=== PATIENT | male | born 1985 | race African-American/Black ===

== ENCOUNTER 2017-06-09 14:10 | Emergency (ER) | payer OTHER ==
[~2017-06-09] VITALS: Ht 188 cm; Wt 86.2 kg
[2017-06-09 14:38] VITALS: BP 126/83
[2017-06-09] MEDS ORDERED: KETOROLAC TROMETH 60MG/2ML VIAL IM ONE (16:15)
== END 2017-06-09 17:31 | disposition home or self-care (01) ==
LOC: ER 14:23
DX: R20.0 Anesthesia of skin (principal); M79.642 Pain in left hand
CPT/HCPCS: 70450; 96372; 99284; J1885

== ENCOUNTER 2018-02-14 16:59 | Emergency (ER) | payer MEDICAID ==
[~2018-02-14] VITALS: Ht 188 cm; Wt 86.2 kg
[2018-02-14 19:14] VITALS: BP 121/75
[2018-02-14] MEDS ORDERED: VANCOMYCIN 1GM/250ML 250 ML IV ONE (19:30)
[2018-02-14] MEDS ORDERED: cefTRIAXone 1GM/50ML D5W 50 ML IV ONE (19:30)
[2018-02-14 19:54] LABS: Basophils # (auto) 0.1 uL; Basophils % (auto) 0.5 % (0.0-2.0); Eosinophils # (auto) 0.1 uL; Eosinophils % (auto) 0.6 % (0.0-7.0); Hematocrit 35.7 % (41.0-53.0); Hemoglobin 12.2 g/dL (13.5-17.5); Lymphocytes # (auto) 2.3 uL; Lymphocytes % (auto) 19.7 % (10.0-50.0); Mean Corpuscular Hemoglobin 31.1 pg (28.0-32.0); Mean Corpuscular Hgb Conc. 34.2 g/dL (32.0-36.0); Mean Corpuscular Volume 90.8 fL (80.0-100.0); Monocytes % (auto) 8.8 % (0.0-12.0); Neutrophils # (auto) 8.1 uL; Neutrophils % (auto) 70.4 % (37.0-80.0); Platelet Count (auto) 304 10^3/uL (140-450); Red Blood Cells 3.93 10^6/uL (4.5-5.90); White Blood Cell 11.5 10^3/uL (4.4-10.8)
[2018-02-14 20:22] LABS: Albumin 3.7 g/dL (3.4-5.0); BUN/Creatinine Ratio 15.2; Calcium 8.7 mg/dL (8.5-10.1); Potassium 3.5 mmol/L (3.5-5.1)
[2018-02-14 20:25] LABS: Bilirubin, Total 0.3 mg/dL (0.2-1.0); Total Protein 7.5 g/dL (6.4-8.2)
[2018-02-14 21:25] LABS: Urine Bacteria NONE SEEN /hpf (None Seen); Urine Blood Negative /uL (Negative); Urine Mucus FEW (None Seen); Urine Specific Gravity 1.021 (1.001-1.035); Urine WBC 2 /hpf (0 - 3)
[2018-02-14 21:38] LABS: Alcohol, Urine < 3.0 mg/dL (0-5); Amphetamine Screen, Urine POSITIVE (NEGATIVE); Barbiturate Scree,Urine NEGATIVE (NEGATIVE); Benzodiazephine Screen, Urine NEGATIVE (NEGATIVE); Cannabinoid Screen, Urine NEGATIVE (NEGATIVE); Cocaine Screen, Urine NEGATIVE (NEGATIVE); Opiate Scree,Urine NEGATIVE (NEGATIVE); Phencyclidine Screen, Urine NEGATIVE (NEGATIVE)
== END 2018-02-14 21:59 | disposition home or self-care (01) ==
LOC: ER 16:59
DX: M65.842 Other synovitis and tenosynovitis, left hand (principal); F17.210 Nicotine dependence, cigarettes, uncomplicated; F12.10 Cannabis abuse, uncomplicated
CPT/HCPCS: 36415; 73200; 80053; 80307; 81001; 83605; 85025; 87040; 96365; 96368; 99284; J0696; J3370

== ENCOUNTER 2022-09-22 13:47 | Emergency (ER) | payer MEDICAID ==
[~2022-09-22] VITALS: Ht 182.9 cm; Wt 90.9 kg
[2022-09-22 15:56] VITALS: BP 126/74; PULSE 94; RESP 16; TEMP 99.4; O2SAT 100
[2022-09-22] MEDS ORDERED: METH-1182 PO (16:08)
[2022-09-22] MEDS ORDERED: IBUP-1456 PO (16:08)
== END 2022-09-22 16:14 | disposition home or self-care (01) ==
LOC: ER 13:47
DX: S46.911A Strain of unspecified muscle, fascia and tendon at shoulder and upper arm level, right arm, initial encounter (principal); F17.210 Nicotine dependence, cigarettes, uncomplicated; F15.90 Other stimulant use, unspecified, uncomplicated; Z79.1 Long term (current) use of non-steroidal anti-inflammatories (NSAID); Z79.899 Other long term (current) drug therapy; Y93.B2 Activity, push-ups, pull-ups, sit-ups; Y93.89 Activity, other specified; Y92.89 Other specified places as the place of occurrence of the external cause; Y99.8 Other external cause status
CPT/HCPCS: 73080; 73090

== ENCOUNTER 2022-09-30 11:45 | Emergency (ER) | payer MEDICAID ==
[~2022-09-30] VITALS: Ht 182.9 cm; Wt 92.0 kg
[~2022-09-30 11:45] MED LIST: IBUP-1456 PO; METH-1182 PO
[2022-09-30 14:12] VITALS: BP 124/87; PULSE 100; RESP 18; TEMP 97.8; O2SAT 97
[2022-09-30] MEDS ORDERED: MICO2CRE84 EX (14:53)
== END 2022-09-30 15:02 | disposition home or self-care (01) ==
LOC: ER 11:45
DX: B35.3 Tinea pedis (principal); F17.210 Nicotine dependence, cigarettes, uncomplicated; F12.90 Cannabis use, unspecified, uncomplicated; Z79.899 Other long term (current) drug therapy

== ENCOUNTER 2022-12-29 11:40 | Emergency (ER) | payer MEDICAID ==
[~2022-12-29] VITALS: Ht 188 cm; Wt 89.0 kg
[~2022-12-29 11:40] MED LIST changes: +MICO2CRE84 EX
[2022-12-29 12:27] LABS: Basophils # (auto) 0.1 10 ^3/uL (0-0.2); Eosinophils # (auto) 0.1 10 ^3/uL (0-0.8); Eosinophils % (auto) 1.2 % (0.0-7.0); Hematocrit 46.1 % (41.0-53.0); Lymphocytes % (auto) 26.7 % (10.0-50.0); Mean Corpuscular Hemoglobin 32.1 pg (28.0-32.0); Mean Corpuscular Hgb Conc. 34.7 g/dL (32.0-36.0); Mean Corpuscular Volume 92.5 fL (80.0-100.0); Monocytes # (auto) 0.6 10 ^3/uL (0-1.3); Monocytes % (auto) 7.6 % (0.0-12.0); Neutrophils # (auto) 4.7 10 ^3/uL (1.6-8.6); Neutrophils % (auto) 63.5 % (37.0-80.0); Nucleated Red Blood Cells % 0.4 %; Red Blood Cells 4.98 10^6/uL (4.5-5.90); Red Cell Distribution Width 14.7 % (11.8-14.3); White Blood Cell 7.4 10^3/uL (4.4-10.8)
[2022-12-29 12:36] LABS: Chloride 103 mmol/L (98-107); Sodium 137 mmol/L (136-145)
[2022-12-29 12:37] LABS: Anion Gap 5 (5-15); Calcium 9.4 mg/dL (8.7-10.4); Carbon Dioxide 29 mmol/L (20-30)
[2022-12-29 12:42] LABS: BUN/Creatinine Ratio 9.2 (10.0-20.0); Blood Urea Nitrogen 9 mg/dL (9-23); Glucose 86 mg/dL (74-106)
[2022-12-29] MEDS ORDERED: KETOROLAC TROMETH 30 MG/ML 1ML VIAL IV ONE (13:45)
[2022-12-29] MEDS ORDERED: CLINDAMYCIN 900MG IV 50 ML IV ONE (13:45)
[2022-12-29 14:49] VITALS: BP 128/81
[2022-12-29 14:51] VITALS: PULSE 85; RESP 18; O2SAT 98
[2022-12-29] MEDS: CLINDAMYCIN 300MG IV 50 ML IV SCH ×2 (15:11→15:59)
[2022-12-29] MEDS ORDERED: CEFD300C2 PO (18:13)
[2022-12-29] MEDS ORDERED: DICL50TA2 PO (18:13)
[2022-12-29] MEDS ORDERED: HYDR-4902 PO (18:13)
== END 2022-12-29 18:46 | disposition home or self-care (01) ==
LOC: ER 11:40
DX: M72.0 Palmar fascial fibromatosis [Dupuytren] (principal); M65.842 Other synovitis and tenosynovitis, left hand; L02.512 Cutaneous abscess of left hand; F17.210 Nicotine dependence, cigarettes, uncomplicated; F15.90 Other stimulant use, unspecified, uncomplicated; Z79.1 Long term (current) use of non-steroidal anti-inflammatories (NSAID); Z79.899 Other long term (current) drug therapy; Z98.890 Other specified postprocedural states
CPT/HCPCS: 36415; 73200; 80048; 85025; 96365; 99285; J3490

== ENCOUNTER 2023-03-13 05:47 | Emergency (ER) | payer MEDICAID ==
[~2023-03-13] VITALS: Ht 182.9 cm; Wt 92.5 kg
[~2023-03-13 05:47] MED LIST changes: +CEFD300C2 PO; +DICL50TA2 PO; +HYDR-4902 PO
[2023-03-13 05:55] VITALS: TEMP 97.7
[2023-03-13 06:00] VITALS: BP 115/66; PULSE 95; RESP 16; O2SAT 98
[2023-03-13] MEDS ORDERED: methylPREDNISolone SOD SUCC 125 MG/2 ML VL IV ONE (07:00)
[2023-03-13] MEDS ORDERED: cefTRIAXone 1GM/50ML D5W 50 ML IV ONE (07:00)
[2023-03-13] MEDS ORDERED: KETOROLAC TROMETH 30 MG/ML 1ML VIAL IV ONE (07:00)
[2023-03-13 07:17] LABS: Basophils # (auto) 0.1 10 ^3/uL (0-0.2); Basophils % (auto) 0.9 % (0.0-2.0); Eosinophils # (auto) 0.1 10 ^3/uL (0-0.8); Eosinophils % (auto) 1.5 % (0.0-7.0); Hematocrit 44.9 % (41.0-53.0); Hemoglobin 15.3 g/dL (13.5-17.5); Lymphocytes % (auto) 28.5 % (10.0-50.0); Mean Corpuscular Hemoglobin 31.7 pg (28.0-32.0); Mean Corpuscular Volume 93.2 fL (80.0-100.0); Monocytes # (auto) 0.6 10 ^3/uL (0-1.3); Neutrophils # (auto) 4.2 10 ^3/uL (1.6-8.6); Neutrophils % (auto) 61.1 % (37.0-80.0); Red Blood Cells 4.82 10^6/uL (4.5-5.90); Red Cell Distribution Width 14.1 % (11.8-14.3)
[2023-03-13 07:37] LABS: Alanine Aminotransferase 48 U/L (7-40); Albumin 4.6 g/dL (3.2-4.8); Alkaline Phosphatase 72 U/L (46-116); Anion Gap 8 (5-15); Aspartate Aminotransferase 44 U/L (13-40); Bilirubin, Total 0.5 mg/dL (0.2-1.0); Blood Urea Nitrogen 11 mg/dL (9-23); Calcium 9.4 mg/dL (8.5-10.1); Carbon Dioxide 24 mmol/L (20-30); Chloride 106 mmol/L (98-107); Glucose 116 mg/dL (74-106); Potassium 4.4 mmol/L (3.5-5.1); Sodium 138 mmol/L (136-145); Total Protein 7.5 g/dL (5.7-8.2)
[2023-03-13] MEDS ORDERED: IBUP1TAB5 PO (08:17)
[2023-03-13] MEDS ORDERED: PRED20TA2 PO (08:17)
[2023-03-13] MEDS ORDERED: CEPH500C PO (08:17)
== END 2023-03-13 08:25 | disposition home or self-care (01) ==
LOC: ER 05:47
DX: L03.114 Cellulitis of left upper limb (principal); F17.210 Nicotine dependence, cigarettes, uncomplicated; F12.10 Cannabis abuse, uncomplicated
CPT/HCPCS: 36415; 80053; 85025; 96365; 96375; 99284; J0696; J1885; J2930